=== PATIENT | male | born 1950 | race Caucasian/White ===

== ENCOUNTER 2016-08-05 07:53 | Day surgery (SDC) | payer OTHER, BC ==
[2016-08-04 14:51] VITALS: BMI 27.6
[2016-08-05] MEDS ORDERED: PROPOFOL 20 ML ONE (08:37)
[2016-08-05] MEDS ORDERED: LIDOCAINE HCL/PF 2% SDV 5ML VIAL ONE (08:37)
[2016-08-05] MEDS ORDERED: ONDANSETRON 4 MG/2 ML VIAL IVPUSH PRN (09:08)
[2016-08-05] MEDS ORDERED: oxyCODONE HCL 5 MG TABLET PO PRN (09:08)
[2016-08-05] MEDS ORDERED: LACTATED RINGERS SOLUTION 1,000 ML IV SCH (09:15)
[2016-08-05] MEDS ORDERED: MIDAZOLAM HCL 2 MG/2 ML SINGLE DOSE VIAL ONE (09:19)
[2016-08-05] MEDS ORDERED: LIDOCAINE HCL 2% (20ML MULTI-DOSE VIAL) NR ONE (09:21)
[2016-08-05] MEDS ORDERED: LIDOCAINE HCL 2% (50ML VIAL) INF ONE (09:30)
[2016-08-05] MEDS ORDERED: KETOROLAC TROMETHAMINE 30 MG/1 ML VIAL ONE (09:51)
[2016-08-05] MEDS ORDERED: PROMETHAZINE HCL 25 MG/1 ML VIAL IVPUSH PRN (10:54)
[2016-08-05 11:01] VITALS: BP 118/65; PULSE 78; TEMP 97.8
--- NOTE | 2016-08-06 10:53 | OP ---
DATE OF OPERATION: 08/05/2016 PREOPERATIVE DIAGNOSES: 1. Right wrist inflammatory arthritis. 2. Right carpal tunnel syndrome. POSTOPERATIVE DIAGNOSES: 1. Right wrist inflammatory arthritis. 2. Right carpal tunnel syndrome. OPERATIVE PROCEDURES: 1. Right wrist flexor tenosynovectomy. 2. Right carpal tunnel release. SURGEON: Raad Alarcon MD DIAPHRAGM BUILDER: CORY Bhardwaj ANESTHESIA: Local with sedation. COMPLICATIONS: None. ESTIMATED BLOOD LOSS: Minimal. SPECIMEN SENT: Right flexor tenosynovium for pathological permanent specimen. INDICATIONS FOR PROCEDURE: The patient is a 66-year-old male with clinical findings consistent with inflammatory arthritis and right carpal tunnel syndrome. He was indicated for operative treatment, including a flexor tenosynovectomy, biopsy, carpal tunnel release. Risks, benefits, and alternatives of the procedure were discussed with the patient at length, and proper informed consent was obtained. PROCEDURE: After proper identification of the patient and correct operative site, the patient was brought to the operating room and placed supine on the operating room table. All prominences were well padded. Sedation was given by the anesthesiologist. Local anesthesia was given with 2% lidocaine. Right upper extremity was prepped and draped in the usual sterile fashion. A well-padded tourniquet was placed with a sterile prep. Esmarch bandage used to exsanguinate the right upper extremity. Tourniquet was inflated to 250 mmHg. A longitudinal incision was made over the palm over the carpal tunnel which was extended into the distal forearm with a V-shaped incision connecting the carpal canal incision to the distal forearm. The incision was taken sharply through skin with blunt and sharp dissection of subcutaneous tissues. Palmar fascia and antebrachial fascia were divided longitudinally. Transverse carpal ligament was divided longitudinally. 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 The median nerve was also quite enlarged proximal to this. Once the transverse carpal ligament was released, the median nerve in the area had a hyperemic response. In addition, a significant flexor tenosynovitis was noted. A tenosynovectomy of the flexor tendons was performed, taking care to protect the median nerve and its branches. The synovium was sent for pathological evaluation. The wound was irrigated with saline and repaired using a 5-0 nylon suture. Sterile dressings were applied. The patient was reversed from anesthesia and brought to the recovery room in stable condition. Buddy Pace was integral throughout the procedure. This procedure could not have been performed without a skilled operative public relations assistant. RAAD ALARCON M.D. [id number]
--- NOTE | 2016-08-07 10:57 | PATH ---
Surgical Pathology Report Patient Name: ALIA DOMINGUEZ [facility]. Rec. #: [id number] /Age/Gender: 1950 (Age: 66) / M Account: [id number] Location: [facility] Taken: 08/05/2016 Received: 08/05/2016 Reported: 08/07/2016 Physicians: Raad Pedro M.D. Specimen(s) Received RIGHT WRIST FLEXOR TENOSYNOVIUM Clinical History Right carpal tunnel, arthrosis Final Diagnosis SOFT TISSUE, RIGHT WRIST, CARPAL TUNNEL RELEASE: TENOSYNOVIUM WITH CHRONIC INFLAMMATION. Comment: Recommend correlation with clinical findings and follow up as clinically indicated. Electronically Signed Marshal Barnes M.D. Gross Description Received in formalin labeled "right wrist flexor tenosynovium," is a 1.2 x 1.0 x 0.3 cm aggregate of multiple mckenna-yellow, irregular portions of soft tissue, consistent with tenosynovium. The specimen is entirely submitted in one cassette. 08/06/2016 [facility]08/06/2016
== END 2016-08-05 11:05 | disposition home or self-care (01) ==
LOC: FASU 07:53
PROVIDERS: ATTEND Orthopaedic Surgery Hand Surgery
PROC: 01N50ZZ Release Median Nerve, Open Approach (ICD-10-PCS; 2016-08-05)
PROC: 0LB50ZZ Excision of Right Lower Arm and Wrist Tendon, Open Approach (ICD-10-PCS; principal; 2016-08-05 10:00)
DX: G56.01 Carpal tunnel syndrome, right upper limb (principal); M13.831 Other specified arthritis, right wrist
CPT/HCPCS: 88304-TC